=== PATIENT | male | born 1950 | race Caucasian/White ===

== ENCOUNTER → 2020-04-25 | Outpatient (CLI) | payer MEDICARE ==
[2014-07-03 08:51] VITALS: BP 171/95
--- NOTE | 2020-04-25 12:33 | RAD ---
PROCEDURE: HAND RIGHT 3V CLINICAL INDICATION / HISTORY: Reason: PAINFULL GROWTH AT BASE OF 1ST DIGIT / Spl. Instructions: / History: . TECHNIQUE: PA, lateral and oblique views of the right hand. COMPARISON: None FINDINGS: No fracture or dislocation is identified. The bone density is normal. There are small, cloudlike ossification along the radial aspect of the base of the first metacarpal. Curvilinear calcifications along the radiocarpal and intercarpal joints is also noted. The joint spaces are maintained, and there are no erosions to suggest an inflammatory arthropathy. The soft tissues are otherwise unremarkable. IMPRESSION: Chondrocalcinosis with possible inflammatory new bone formation of the joints including the base of the first metacarpal. Query early changes of psoriatic arthritis. Correlate clinically. Electronically signed by: Vernon March MD (04/25/2020 12:30 PM) [id number]
== END | disposition home or self-care (01) ==
LOC: DXRAD 10:48
PROVIDERS: ATTEND Family Medicine
DX: M11.241 Other chondrocalcinosis, right hand (principal); M25.841 Other specified joint disorders, right hand
CPT/HCPCS: 73130

== ENCOUNTER → 2020-06-27 | Outpatient (CLI) | payer MEDICARE ==
[2014-07-03 08:51] VITALS: BP 171/95
--- NOTE | 2020-06-27 14:15 | RAD ---
CT scan of the chest, abdomen and pelvis without contrast 06/27/2020 CLINICAL HISTORY: Eccrine sweat disorder. Previous history of chronic cough. History of renal cysts. TECHNIQUE: Unenhanced, contiguous, 0.625 mm axial sections were obtained through the chest, abdomen and pelvis. 3 mm reconstructed axial, sagittal and coronal images were obtained. One or more of the following individualized dose reduction techniques were utilized for this study: 1. Automated exposure control. 2. Adjustment of the mA and/or kV according to patient size. 3. Use of iterative reconstruction technique. FINDINGS: Comparison study is dated 11/19/2014. Mild scattered atherosclerotic calcification of the thoracic aorta is seen. The thoracic aorta is mildly tortuous but tapers normally. Calcified hilar mediastinal lymph nodes are seen which measure 3 mm to 2.3 cm in size. No hilar, mediastinal or axillary lymphadenopathy is noted. The heart is normal in size. Dependent subsegmental atelectasis is seen involving the right lower lobe. Small calcified granulomas are seen involving the left lower lobe. No area of consolidation is seen. No pulmonary mass or significant pulmonary nodule is noted. No pleural effusion or pneumothorax is seen. The liver, spleen, pancreas, and adrenal glands are within normal limits. Rounded low-attenuation lesions are seen involving both kidneys which measure 8 mm to 4.6 cm in size. These likely represent cysts. No further imaging workup is recommended. Several nonobstructing calculi are seen scattered throughout the left kidney which measure 1 to 2 mm in size. A 2 mm nonobstructing calculus is seen involving the lower pole of the right kidney. Atherosclerotic calcification of the abdominal aorta is seen. The abdominal aorta tapers normally. The gallbladder is contracted. No free fluid or free air is seen within the abdomen. There is no evidence of bowel obstruction. Air and stool are seen throughout the colon. Scattered diverticula are seen involving the colon. No inflammatory changes are seen in the adjacent fat. The patient is post appendectomy. No retroperitoneal lymphadenopathy is seen. Images through the pelvis demonstrate the urinary bladder distended with urine. The prostate gland is enlarged likely related to BPH. Calcifications are seen within the pelvis consistent with phleboliths. No free fluid is seen. No pelvic or inguinal lymphadenopathy is seen. Very mild S-shaped curvature of the thoracolumbar spine is seen. Degenerative changes are seen involving the thoracic and lumbar spine along with both hips. IMPRESSION: No acute abnormality is seen. Electronically signed by: Lyle Flores MD (06/27/2020 2:12 PM) [id number]
== END ==
LOC: CT 10:23
PROVIDERS: ATTEND Family Medicine
DX: N20.0 Calculus of kidney (principal); N40.0 Benign prostatic hyperplasia without lower urinary tract symptoms; L74.9 Eccrine sweat disorder, unspecified; I70.0 Atherosclerosis of aorta; N32.89 Other specified disorders of bladder; Q25.46 Tortuous aortic arch; M47.815 Spondylosis without myelopathy or radiculopathy, thoracolumbar region; M16.0 Bilateral primary osteoarthritis of hip
CPT/HCPCS: 71250; 74176

== ENCOUNTER → 2021-02-18 | Outpatient (CLI) | payer MEDICARE ==
[2014-07-03 08:51] VITALS: BP 171/95
--- NOTE | 2021-02-18 08:41 | RAD ---
EXAMINATION: US ABDOMEN COMPLETE INDICATION: 70 years, Male, alcoholic hepatitis. COMPARISON: 06/27/2020 TECHNIQUE: Grayscale, color Doppler and limited spectral Doppler images of the abdomen were obtained. FINDINGS: LIVER: SIZE (LENGTH): 15.5 cm. ECHOGENICITY: Normal PARENCHYMA: Coarse heterogeneous echotexture with mild surface irregularity. No discrete focal lesion . INTRAHEPATIC BILE DUCTS: Nondilated. PORTAL VEIN: Patent with normal hepatopedal flow. GALLBLADDER: GALLBLADDER WALL THICKNESS: 2 mm MORPHOLOGY: Normal morphology. No wall hyperemia or pericholecystic free fluid. LUMEN: Normal. COMMON BILE DUCT DIAMETER: 3.7 mm RIGHT KIDNEY: MEASURES: 13.7 x 7.5 x 9.0 cm. MORPHOLOGY/PARENCHYMA: Diffuse loss of corticomedullary differentiation. Multiple simple and mildly c omplex cysts, the largest in the interpolar region measures 4.4 cm. COLLECTING SYSTEM: No hydronephrosis. LEFT KIDNEY: MEASURES: 11.2 x 6.5 x 6.2 cm. MORPHOLOGY/PARENCHYMA: Diffuse loss of corticomedullary differentiation. Multiple simple appearing re nal cysts. COLLECTING SYSTEM: No hydronephrosis. SPLEEN: SIZE (LENGTH): 10.6 cm PARENCHYMA: Unremarkable. PANCREAS: VISUALIZED PORTIONS: Neck APPEARANCE: Within normal limits. OTHER: RETROPERITONEUM, INFERIOR VENA CAVA: Normal caliber. AORTA: Normal caliber measures up to 2.5 cm FLUID:No free fluid. IMPRESSION: 1. Coarse heterogeneous hepatic parenchymal echotexture with surface nodularity, suggesting of chroni c liver disease. No discrete focal hepatic lesion. 2. Loss of corticomedullary differentiation of the kidneys, findings can be seen in chronic medical r enal disease. 3. Simple and mildly complex bilateral renal cysts measuring up to 4.4 cm. Electronically signed by: Arthur Garcia MD (02/18/2021 8:39 AM) [facility]
== END ==
LOC: US 07:47
PROVIDERS: ATTEND Family Medicine
DX: N28.1 Cyst of kidney, acquired (principal); K70.10 Alcoholic hepatitis without ascites
CPT/HCPCS: 76700

== ENCOUNTER → 2021-07-28 | Outpatient (CLI) | payer MEDICARE ==
[2014-07-03 08:51] VITALS: BP 171/95
[2021-07-28 15:34] LABS: HEMATOCRIT 36.7 % (39.0-53.0); HEMOGLOBIN 12.2 g/dL (13.0-17.5)
[2021-07-28 15:41] LABS: ALBUMIN 3.6 g/dL (3.4-5.0); CALCIUM 9.6 mg/dL (8.5-10.1); CREATININE 1.3 mg/dL (0.7-1.3); GFR 54.3; MAGNESIUM 1.8 mg/dL (1.8-2.4); PHOSPHORUS 3.2 mg/dL (2.6-4.7); POTASSIUM 4.5 mmol/L (3.5-5.1); URIC ACID 7.1 mg/dL (3.5-7.2)
[2021-07-28 15:46] LABS: BILIRUBIN,URINE NEG (NEG); CLARITY,URINE CLEAR; COLOR,URINE YELLOW; GLUCOSE,URINE NEG (NEG)
[2021-07-28 15:47] LABS: BACTERIA,URINE 0 /HPF (0-FEW); NITRITE,URINE NEG (NEG); RBC,URINE 0 /HPF (0-2); SQUAMOUS EPITHELIAL CELL,UR OCC /LPF; UROBILINOGEN,URINE 0.2 mg/dL (0.2 mg/dL); WBC,URINE 0 /HPF (0-4)
[2021-07-28 23:07] LABS: CALCIUM PTH 10.3 mg/dL (8.6-10.2); PTH INTACT 72 pg/mL (15-65)
[2021-07-29 00:07] LABS: MICROALB RD UR 181.9 ug/mL (Not Estab.)
[2021-07-29 19:46] LABS: CREATININE,RANDOM URINE 75.4 mg/dL (Not Establ.)
== END ==
LOC: LAB 14:02
PROVIDERS: ATTEND Nurse Practitioner Family
DX: I12.9 Hypertensive chronic kidney disease with stage 1 through stage 4 chronic kidney disease, or unspecified chronic kidney disease (principal); N18.31 Chronic kidney disease, stage 3a; N14.0 Analgesic nephropathy; I70.1 Atherosclerosis of renal artery; R80.1 Persistent proteinuria, unspecified; Q61.9 Cystic kidney disease, unspecified; N11.9 Chronic tubulo-interstitial nephritis, unspecified; D63.1 Anemia in chronic kidney disease; E55.9 Vitamin D deficiency, unspecified; K76.0 Fatty (change of) liver, not elsewhere classified; Z68.31 Body mass index [BMI] 31.0-31.9, adult
CPT/HCPCS: 80069; 81001; 82043; 82306; 82570; 83735; 83970; 84156; 84550; 85014; 85018

== ENCOUNTER → 2021-08-01 | Outpatient (CLI) | payer MEDICARE ==
[2014-07-03 08:51] VITALS: BP 171/95
--- NOTE | 2021-08-01 11:47 | RAD ---
CT chest without contrast dated 08/01/2021. COMPARISON: 06/27/2020. CLINICAL INDICATION: Hypersensitivity pneumonitis. Shortness of breath. TECHNIQUE: Contiguous axial imaging of the chest was performed in inspiration and expiration and in supine and p emily positions using HRCT protocol. One or more of the following individualized dose reduction techniques were utilized for this examinat ion: 1. Automated exposure control 2. Adjustment of the mA and/or kV according to patient size 3. Use of iterative reconstruction technique. FINDINGS: Central airways are patent. There are some linear parenchymal bands immediately at the right lower lo be, likely atelectasis or scarring. No interlobular or intralobular septal thickening. No significant bronchiectasis. No significant centrilobular or perilymphatic nodularity. There are a few scattered calcified granuloma. There is a small noncalcified pulmonary nodule in the right lower lobe on image 42 that measures 2 mm there is also a small nodule in the posterior aspect of the right upper lobe on image 38 that measures about 2 mm. No significant air trapping on the extra phase images. Heart size is within normal limits. No pericardial effusion. There are calcified mediastinal and bila teral hilar lymph nodes. No pathologically enlarged lymph nodes. Thyroid gland is unremarkable. Coron paradise artery calcifications. Images of the upper abdomen show low-density foci of the bilateral kidney, unchanged, likely cysts. T here is some nodularity of the liver capsule with hypertrophy of the left lobe suggesting cirrhotic c hange. No acute bony abnormality. Multilevel spondylosis. IMPRESSION: 1. No CT evidence of hypersensitivity pneumonitis. No evidence of interstitial lung disease. 2. There are couple of tiny noncalcified pulmonary nodules on the right, nonspecific. 3. Old granulomatous disease. 4. Coronary artery calcifications. Electronically signed by: Min Stout MD (08/01/2021 11:45 AM) [facility]
== END ==
LOC: CT 08:06
PROVIDERS: ATTEND Internal Medicine Pulmonary Disease
DX: R91.8 Other nonspecific abnormal finding of lung field (principal); D71 Functional disorders of polymorphonuclear neutrophils; I25.10 Atherosclerotic heart disease of native coronary artery without angina pectoris; J84.10 Pulmonary fibrosis, unspecified; I89.8 Other specified noninfective disorders of lymphatic vessels and lymph nodes; K76.89 Other specified diseases of liver; M47.819 Spondylosis without myelopathy or radiculopathy, site unspecified
CPT/HCPCS: 71250

== ENCOUNTER → 2022-01-13 | Outpatient (CLI) | payer MEDICARE ==
[2014-07-03 08:51] VITALS: BP 171/95
--- NOTE | 2022-01-14 08:56 | RAD ---
EXAM: RENAL ULTRASOUND CLINICAL HISTORY: Reason: CKD STAGE 3a COMPARISON: Abdominal ultrasound 02/19/2020 TECHNIQUE: Ultrasound examination of the bilateral kidneys and urinary bladder was performed. FINDINGS: The right kidney measures 13.1 cm in bipolar length. The renal cortex is normal in thickness. There i s diffuse loss of the cortical medullary differentiation. There is no evidence for hydronephrosis, s hadowing renal calculus. There are numerous simple appearing cysts bilaterally, largest on the right measures up to 5.8 cm and contains a thin septation, similar to prior given differences in technique. The left kidney measures 13.2 cm in bipolar length. The renal cortex is normal in thickness. There is diffuse loss of the cortical medullary differentiation. There is no evidence for hydronephrosis, sha dowing renal calculus. There are a few small simple cysts measuring up to 1.6 cm. Images of the partially filled urinary bladder are unremarkable. There is a post void residual of filiberto roximately 14 cc. IMPRESSION: Similar sonographic appearance of the bilateral kidneys consistent with medical renal disease. Electronically signed by: Shaheen Plasencia MD (01/14/2022 8:54 AM) [id number]
== END ==
LOC: US 10:48
PROVIDERS: ATTEND Family Medicine
DX: N28.1 Cyst of kidney, acquired (principal); N28.89 Other specified disorders of kidney and ureter; N18.31 Chronic kidney disease, stage 3a
CPT/HCPCS: 76770